=== PATIENT | female | born 1985 | race Caucasian/White ===

== ENCOUNTER 2017-06-02 10:09 | Observation (INO) | payer OTHER ==
[~2017-06-02 10:09] MED LIST: DICY1TAB26 PO; ZOFR4TAB3 SL
[2017-06-02 10:15] VITALS: BP 121/71; PULSE 102; RESP 18; TEMP 98.6; O2SAT 100
[2017-06-02] MEDS ORDERED: MULT-207 PO (10:46)
[2017-06-02] MEDS ORDERED: SYSTSOL EACH EYE (10:46)
--- NOTE | 2017-06-02 11:44 | PD ---
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 Patient states she noticed this about 4 days ago and attributed to fatigue. She reports that her vision is completely blurred in her peripheral vision of that left eye with some facial numbness and tingling surrounding the eye. She did follow-up with an network infrastructure architect yesterday who assured her that her I was not the source of her symptoms. She felt she would give it another day but with persistent visual changes in her left periphery, she felt she should come and get it evaluated. Patient denies any significant headache. There is no pain. She has not been recently ill. No fever or chills. No chest pain or tightness. Patient denies any other focal deficit or weakness. She has no other symptoms to report. PFSH Past Medical History Medical History: Denies Significant Hx Diminished Hearing: No ?: Not : 2 Para: 2 Miscarriage: 0 : 0 Past Surgical History Cholecystectomy: Yes Social History Alcohol Use: No Tobacco Use: No Substance Use: No Allergies-Medications (Allergen,Severity, Reaction): Coded Allergies: No Known Allergies (Verified , 11/25/15) Reported Meds & Prescriptions Reported Meds & Active Scripts Active Reported One Daily (Multiple Vitamin) 1 Tab 1 Tab PO DAILY Systane Opth Drops (Polyethylene Glycol-Propylene Glycol Opth Drp) 0.4-0.3% Soln 1-2 Drop EACH EYE PRN PRN Review of Systems Except as stated in HPI: all other systems reviewed are Neg Physical Exam Narrative GENERAL: Well-nourished female patient, ambulatory with a steady gait, in no acute distress. SKIN: Focused skin assessment warm/dry. HEAD: Atraumatic. Normocephalic. No ropey temporal artery. EYES: Pupils equal and round. No scleral icterus. No injection or drainage. EOMI. PERRLA. On confrontation test subjective blurred vision in the lateral and medial peripheral day of the left eye, worse on the lateral. ENT: No nasal bleeding or discharge. Mucous membranes pink and moist. NECK: Trachea midline. No JVD. CARDIOVASCULAR: Regular rate and rhythm. No murmur appreciated. RESPIRATORY: No accessory muscle use. Clear to auscultation. Breath sounds equal bilaterally. GASTROINTESTINAL: Abdomen soft, non-tender, nondistended. Hepatic and splenic margins not palpable. MUSCULOSKELETAL: No obvious deformities. No clubbing. No cyanosis. No edema. Equal surgical scheduler strength. NEUROLOGICAL: Awake and alert. Other than subjective sensation alteration in the left face, mostly surrounding the eye, cranial nerves are intact. Motor movement. Motor grossly within normal limits. Normal speech. PSYCHIATRIC: Appropriate mood and affect; insight and judgment normal. Data Data Last Documented VS Vital Signs Date Time Temp Pulse Resp B/P (MAP) Pulse Ox O2 Delivery O2 Flow Rate FiO2 06/02/17 12:13 99 06/02/17 10:15 98.6 102 18 Orders Orders Methylprednisolone So Succ Inj (Solumedr (06/02/17 12:06) Electrocardiogram (06/02/17 12:10) Basic Metabolic Panel (Bmp) (06/02/17 12:10) Ed Urine Pregnancytest Poc (06/02/17 12:10) Complete Blood Count With Diff (06/02/17 12:10) Urinalysis - C+S If Indicated (06/02/17 12:10) Ct Brain W/O Iv Contrast(Rout) (06/02/17 12:10) Ecg Monitoring (06/02/17 12:10) Iv Access Insert/Monitor (06/02/17 12:10) Oximetry (06/02/17 12:10) Sodium Chloride 0.9% Flush (Ns Flush) (06/02/17 12:15) Sodium Chlor 0.9% 1000 Ml Inj (Ns 1000 M (06/02/17 12:10) Act Partial Throm Time (Ptt) (06/02/17 11:32) Prothrombin Time / Inr (Pt) (06/02/17 11:32) Urine Culture (06/02/17 12:45) Ceftriaxone Inj (Rocephin Inj) (06/02/17 13:45) Labs Laboratory Tests Test 06/02/17 11:32 06/02/17 12:45 White Blood Count 6.5 TH/MM3 Red Blood Count 4.43 MIL/MM3 Hemoglobin 13.7 GM/DL Hematocrit 41.0 % Mean Corpuscular Volume 92.5 FL Mean Corpuscular Hemoglobin 31.1 PG Mean Corpuscular Hemoglobin Concent 33.6 % Red Cell Distribution Width 12.9 % Platelet Count 192 TH/MM3 Mean Platelet Volume 8.4 FL Neutrophils (%) (Auto) 65.1 % Lymphocytes (%) (Auto) 26.9 % Monocytes (%) (Auto) 6.4 % Eosinophils (%) (Auto) 1.2 % Basophils (%) (Auto) 0.4 % Neutrophils # (Auto) 4.2 TH/MM3 Lymphocytes # (Auto) 1.7 TH/MM3 Monocytes # (Auto) 0.4 TH/MM3 Eosinophils # (Auto) 0.1 TH/MM3 Basophils # (Auto) 0.0 TH/MM3 CBC Comment DIFF FINAL Differential Comment Prothrombin Time 11.2 SEC Prothromb Time International Ratio 1.0 RATIO Activated Partial Thromboplast Time 29.6 SEC Blood Urea Nitrogen 8 MG/DL Creatinine 0.79 MG/DL Random Glucose 81 MG/DL Calcium Level 8.9 MG/DL Sodium Level 139 MEQ/L Potassium Level 3.6 MEQ/L Chloride Level 105 MEQ/L Carbon Dioxide Level 25.5 MEQ/L Anion Gap 9 MEQ/L Estimat Glomerular Filtration Rate 84 ML/MIN Urine Color LIGHT-YELLOW Urine Turbidity HAZY Urine pH 5.5 Urine Specific [place] 1.006 Urine Protein NEG mg/dL Urine Glucose (UA) NEG mg/dL Urine Ketones 40 mg/dL Urine Occult Blood SMALL Urine Nitrite NEG Urine Bilirubin NEG Urine Urobilinogen LESS THAN 2.0 MG/DL Urine Leukocyte Esterase LARGE Urine RBC 4 /hpf Urine WBC 68 /hpf Urine Squamous Epithelial Cells 2 /hpf Urine Bacteria FEW /hpf Microscopic Urinalysis Comment CULTURE INDICATED MDM Medical Decision Making Medical Screen Exam Complete: Yes Emergency Medical Condition: Yes Medical Record Reviewed: Yes Differential Diagnosis Ocular migraine versus temporal arteritis versus trigeminal neuralgia versus TIA versus demyelinating process. Narrative Course 32-year-old female presents to emergency department for evaluation of peripheral visual "blurriness"with associated facial paresthesias. Patient appears without distress. She has no other focal deficits or weakness. Laboratory Tests Test 06/02/17 11:32 06/02/17 12:45 White Blood Count 6.5 TH/MM3 Red Blood Count 4.43 MIL/MM3 Hemoglobin 13.7 GM/DL Hematocrit 41.0 % Mean Corpuscular Volume 92.5 FL Mean Corpuscular Hemoglobin 31.1 PG Mean Corpuscular Hemoglobin Concent 33.6 % Red Cell Distribution Width 12.9 % Platelet Count 192 TH/MM3 Mean Platelet Volume 8.4 FL Neutrophils (%) (Auto) 65.1 % Lymphocytes (%) (Auto) 26.9 % Monocytes (%) (Auto) 6.4 % Eosinophils (%) (Auto) 1.2 % Basophils (%) (Auto) 0.4 % Neutrophils # (Auto) 4.2 TH/MM3 Lymphocytes # (Auto) 1.7 TH/MM3 Monocytes # (Auto) 0.4 TH/MM3 Eosinophils # (Auto) 0.1 TH/MM3 Basophils # (Auto) 0.0 TH/MM3 CBC Comment DIFF FINAL Differential Comment Prothrombin Time 11.2 SEC Prothromb Time International Ratio 1.0 RATIO Activated Partial Thromboplast Time 29.6 SEC Blood Urea Nitrogen 8 MG/DL Creatinine 0.79 MG/DL Random Glucose 81 MG/DL Calcium Level 8.9 MG/DL Sodium Level 139 MEQ/L Potassium Level 3.6 MEQ/L Chloride Level 105 MEQ/L Carbon Dioxide Level 25.5 MEQ/L Anion Gap 9 MEQ/L Estimat Glomerular Filtration Rate 84 ML/MIN Urine Color LIGHT-YELLOW Urine Turbidity HAZY Urine pH 5.5 Urine Specific [place] 1.006 Urine Protein NEG mg/dL Urine Glucose (UA) NEG mg/dL Urine Ketones 40 mg/dL Urine Occult Blood SMALL Urine Nitrite NEG Urine Bilirubin NEG Urine Urobilinogen LESS THAN 2.0 MG/DL Urine Leukocyte Esterase LARGE Urine RBC 4 /hpf Urine WBC 68 /hpf Urine Squamous Epithelial Cells 2 /hpf Urine Bacteria FEW /hpf Microscopic Urinalysis Comment CULTURE INDICATED Last Impressions Head CT 06/02/17 1210 Signed Impressions: Service Date/Time: May 13:01 - CONCLUSION: 1. No acute intracranial normality. Rex Centeno MD Patient will be treated for UTI. I discussed the patient with my attending physician Dr. Maldonado who does recommend admission for observation for further evaluation of this. Have discussed this with the patient and she is in agreement with this plan of care. I have discussed the patient now with Dr. Germain and he will admit the patient observation. Diagnosis Primary Impression: Abnormal peripheral vision of left eye Additional Impressions: Facial paresthesia UTI (urinary tract infection) Qualified Codes: N30.01 - Acute cystitis with hematuria Admitting Information Admitting Physician Requests: Observation Condition: Stable Gema Coley Jun 02, 2017 11:44
[2017-06-02] MEDS ORDERED: methylPREDNISolone SOD SUCC 125 MG/2 ML VIAL ONE (12:06)
[2017-06-02] MEDS ORDERED: SODIUM CHLOR 0.9% 1000 ML INJ 1,000 ML IV ONE ×2 (12:10→14:00)
[2017-06-02 12:13] VITALS: O2SAT 99
[2017-06-02] MEDS ORDERED: SODIUM CHLORIDE 0.9% FLUSH 10 ML FLUSH IVF PRN (12:15)
[2017-06-02 12:50] LABS: BICARBONATE 25.5 MEQ/L (21.0-32.0); POTASSIUM 3.6 MEQ/L (3.5-5.1)
[2017-06-02 12:56] LABS: APTT (PATIENT) 29.6 SEC (24.3-30.1); AUTOMATED NEUTROPHIL # 4.2 TH/MM3 (1.8-7.7); BASOPHIL % 0.4 % (0.0-2.0); EOSINOPHIL # 0.1 TH/MM3 (0-0.4); EOSINOPHIL % 1.2 % (0.0-4.0); HEMO FLAGS DIFF FINAL; LYMPH % 26.9 % (9.0-44.0); LYMPHOCYTE # 1.7 TH/MM3 (1.0-4.8); MEAN CELL VOLUME 92.5 FL (80.0-100.0); MEAN CORPUSCULAR HEMOGLOBIN 31.1 PG (27.0-34.0); MEAN CORPUSCULAR HGB CONC 33.6 % (32.0-36.0); MONO % 6.4 % (0.0-8.0); NEUT % 65.1 % (16.0-70.0); PLATELET COUNT 192 TH/MM3 (150-450); PROTHROMBIN TIME - PATIENT 11.2 SEC (9.8-11.6); RED BLOOD COUNT 4.43 MIL/MM3 (4.00-5.30); RED CELL DISTRIBUTION WIDTH 12.9 % (11.6-17.2); WHITE BLOOD COUNT 6.5 TH/MM3 (4.0-11.0)
[2017-06-02 13:22] LABS: BACTERIA, URINE FEW /hpf; BLOOD, URINE SMALL (NEG); GLUCOSE,URINE NEG (NEG); KETONE, URINE 40 mg/dL (NEG); NITRITE,URINE NEG (NEG); PH, URINE 5.5 (5.0-8.5); SQUAMOUS EPITHELIAL CELL URINE 2 /hpf (0-5); URINE COLOR LIGHT-YELLOW (YELLW/STRAW)
[2017-06-02 13:26] LABS: COMMENT (UR) CULTURE INDICATED; CULTURE IF INDICATED CULTURE INDICATED
--- NOTE | 2017-06-02 13:35 | RADRPT ---
EXAM DATE/TIME: 06/02/2017 13:01 [facility] COMPARISON: No previous studies available for comparison. INDICATIONS : Peripheral vision loss on left side. RADIATION DOSE: 56.77 CTDIvol (mGy) MEDICAL HISTORY : None SURGICAL HISTORY : Cholecystectomy. ENCOUNTER: Initial ACUITY: 4 - 6 days PAIN SCALE: 3/10 LOCATION: Left lateral side. TECHNIQUE: Multiple contiguous axial images were obtained of the head. Using automated exposure control and adj ustment of the mA and/or kV according to patient size, radiation dose was kept as low as reasonably a chievable to obtain optimal diagnostic quality images. DICOM format image data is available electro nically for review and comparison. FINDINGS: CEREBRUM: The ventricles are normal for age. No evidence of midline shift, mass lesion, hemorrhage or acute in farction. No extra-axial fluid collections are seen. POSTERIOR FOSSA: The cerebellum and brainstem are intact. The 4th ventricle is midline. The cerebellopontine angle i s unremarkable. EXTRACRANIAL: The visualized portion of the orbits is intact. SKULL: The calvaria is intact. No evidence of skull fracture. CONCLUSION: 1. No acute intracranial normality. Rex Centeno MD on June 02, 2017 at 13:31 Board Certified Radiologist. This report was verified electronically.
[2017-06-02] MEDS ORDERED: cefTRIAXone INJ 1,000 MG in SODIUM CHLORIDE 0.9% INJ 100 ML IV ONE (13:45)
[2017-06-02] MEDS ORDERED: methylPREDNISolone SOD SUCC 125 MG/2 ML VIAL IV ONE (14:00)
--- NOTE | 2017-06-02 14:45 | HHI.HP ---
HPI Service [facility] Hospitalists Primary Care Physician Teresa Johnson D.O. 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 Patient states she noticed the symptoms began around 4 days ago but initially attributed this to fatigue. She reports that her vision is completely blurred in her peripheral vision on that left eye with some facial numbness and tingling surrounding the left eye and left cheek. Around two days ago she developed some left sided headache which was relieved with Motrin. She was seen by her poultry farm worker yesterday who performed a dilated examination and she reports that the eye was not the source of her symptoms. Pt reported that the visual changes in her left periphery was persistent and this prompted her to come to the ED for further evaluation. She did try some sinus medication yesterday which the poultry farm worker recommended but she did not notice any difference in her symptoms. She denies any significant headache, facial droop, speech difficulty, swallowing difficulty, focal deficit or weakness. Pt reports that she has not been ill recently. No new medications. No family hx of any neurodegenerative or autoimmune diseases. Review of Systems Eyes: COMPLAINS OF: Blurred vision, DENIES: Eye pain, Vision loss, Photosensitivity, Double Vision Ears, nose, mouth, throat: DENIES: Tinnitus, Hearing loss, Nasal discharge, Hoarseness, Ear Pain, Running Nose, Sinus Pain Respiratory: DENIES: Cough, Shortness of breath Cardiovascular: DENIES: Chest pain, Palpitations Gastrointestinal: DENIES: Abdominal pain, Nausea, Vomiting Genitourinary: DENIES: Urinary frequency, Urgency, Hematuria, Dysuria Musculoskeletal: DENIES: Back pain, Neck pain Integumentary: DENIES: Rash Immunologic/allergic: DENIES: Urticaria Neurologic: COMPLAINS OF: Headache, Paresthesias, DENIES: Localized weakness, Speech Problems, Poor Balance Past Family Social History Past Medical History Legally blind in the right eye Past Surgical History Cholecystectomy Hemorrhoidal banding Perianal cyst removal Reported Medications One Daily (Multiple Vitamin) 1 Tab 1 Tab PO DAILY Systane Opth Drops (Polyethylene Glycol-Propylene Glycol Opth Drp) 0.4-0.3% Soln 1-2 Drop EACH EYE PRN PRN Allergies: Coded Allergies: No Known Allergies (Verified , 11/25/15) Family History Grandfather with hx of lupus otherwise no family hx of autoimmune or neurodegenerative diseases noted Social History Denies any alcohol, tobacco or illicit drug use Pt is an RN here at [facility] Physical Exam Vital Signs Vital Signs Date Time Temp Pulse Resp B/P (MAP) Pulse Ox O2 Delivery O2 Flow Rate FiO2 06/02/17 12:13 99 06/02/17 10:15 98.6 102 18 121/71 (88) 100 Physical Exam GENERAL: This is a well-nourished, well-developed patient, in no apparent distress. SKIN: No rashes, ecchymoses or lesions. Cool and dry. HEAD: Atraumatic. Normocephalic. No temporal or scalp tenderness. EYES: PERRLA. Extraocular motions intact. No scleral icterus. No injection or drainage. Good temporal pulses bilaterally. Subjective blurred vision in the lateral and medial peripheral visual ady of the left eye, worse on the lateral. ENT: Nose without bleeding, purulent drainage or septal hematoma. Throat without erythema, tonsillar hypertrophy or exudate. Uvula midline. Airway patent. NECK: Trachea midline, supple, nontender. No carotid bruits noted. CARDIO: Regular RESP: CTA bilaterally. No wheezes, rales, or rhonchi. ABD: +BS, soft, non-tender, nondistended. EXT: Extremities without clubbing, cyanosis, or edema. NEURO: Awake and alert. Subjective numbness sensation around the left eye and cheek. Motor and sensory grossly within normal limits. Five out of 5 muscle strength in all muscle groups. Normal speech. Laboratory Laboratory Tests Test 06/02/17 11:32 06/02/17 12:45 White Blood Count 6.5 Red Blood Count 4.43 Hemoglobin 13.7 Hematocrit 41.0 Mean Corpuscular Volume 92.5 Mean Corpuscular Hemoglobin 31.1 Mean Corpuscular Hemoglobin Concent 33.6 Red Cell Distribution Width 12.9 Platelet Count 192 Mean Platelet Volume 8.4 Neutrophils (%) (Auto) 65.1 Lymphocytes (%) (Auto) 26.9 Monocytes (%) (Auto) 6.4 Eosinophils (%) (Auto) 1.2 Basophils (%) (Auto) 0.4 Neutrophils # (Auto) 4.2 Lymphocytes # (Auto) 1.7 Monocytes # (Auto) 0.4 Eosinophils # (Auto) 0.1 Basophils # (Auto) 0.0 CBC Comment DIFF FINAL Differential Comment Prothrombin Time 11.2 Prothromb Time International Ratio 1.0 Activated Partial Thromboplast Time 29.6 Blood Urea Nitrogen 8 Creatinine 0.79 Random Glucose 81 Calcium Level 8.9 Sodium Level 139 Potassium Level 3.6 Chloride Level 105 Carbon Dioxide Level 25.5 Anion Gap 9 Estimat Glomerular Filtration Rate 84 Urine Color LIGHT-YELLOW Urine Turbidity HAZY Urine pH 5.5 Urine Specific [place] 1.006 Urine Protein NEG Urine Glucose (UA) NEG Urine Ketones 40 Urine Occult Blood SMALL Urine Nitrite NEG Urine Bilirubin NEG Urine Urobilinogen LESS THAN 2.0 Urine Leukocyte Esterase LARGE Urine RBC 4 Urine WBC 68 Urine Squamous Epithelial Cells 2 Urine Bacteria FEW Microscopic Urinalysis Comment CULTURE INDICATED Date/Time Source Procedure Growth Status 06/02/17 12:45 Urine Clean Catch Urine Culture Pending Received Result Diagram: 06/02/17 1132 06/02/17 1132 Imaging Last Impressions Head CT 06/02/17 1210 Signed Impressions: Service Date/Time: May 13:01 - CONCLUSION: 1. No acute intracranial normality. Rex Centeno MD Septic Shock Reassessment Heart: Regular rate and rhythm Lungs: Clear Skin: Warm Caprini VTE Risk Assessment Caprini VTE Risk Assessment: No/Low Risk (score <= 1) Caprini Risk Assessment Model Point Value = 1 Point Value = 2 Point Value = 3 Point Value = 5 Age 41-60 Minor surgery BMI > 25 kg/m2 Swollen legs Varicose veins or History of unexplained or recurrent spontaneous Oral contraceptives or hormone replacement Sepsis (< 1 month) Serious lung disease, including pneumonia (< 1 month) Abnormal pulmonary function Acute myocardial infarction Congestive heart failure (< 1 month) History of inflammatory bowel disease Medical patient at bed rest Age 61-74 Arthroscopic surgery Major open surgery (> 45 min) Laparoscopic surgery (> 45 min) Malignancy Confined to bed (> 72 hours) Immobilizing plaster cast Central venous access Age >= 75 History of VTE Family history of VTE Factor V Leiden Prothrombin [id number] Lupus anticoagulant Anticardiolipin antibodies Elevated serum homocysteine Heparin-induced thrombocytopenia Other congenital or acquired thrombophilia Stroke (< 1 month) Elective arthroplasty Hip, pelvis, or leg fracture Acute spinal cord injury (< 1 month) Prophylaxis Regimen Total Risk Factor Score Risk Level Prophylaxis Regimen 0-1 Low Early ambulation 2 Moderate Order ONE of the following: *Sequential Compression Device (SCD) *Heparin 5000 units SQ BID 3-4 Higher Order ONE of the following medications: *Heparin 5000 units SQ TID *Enoxaparin/Lovenox 40 mg SQ daily (WT < 150 kg, CrCl > 30 mL/min) *Enoxaparin/Lovenox 30 mg SQ daily (WT < 150 kg, CrCl > 10-29 mL/min) *Enoxaparin/Lovenox 30 mg SQ BID (WT < 150 kg, CrCl > 30 mL/min) AND/OR *Sequential Compression Device (SCD) 5 or more Highest Order ONE of the following medications: *Heparin 5000 units SQ TID (Preferred with Epidurals) *Enoxaparin/Lovenox 40 mg SQ daily (WT < 150 kg, CrCl > 30 mL/min) *Enoxaparin/Lovenox 30 mg SQ daily (WT < 150 kg, CrCl > 10-29 mL/min) *Enoxaparin/Lovenox 30 mg SQ BID (WT < 150 kg, CrCl > 30 mL/min) AND *Sequential Compression Device (SCD) Assessment and Plan Problem List: (1) Abnormal peripheral vision of left eye ICD Codes: H53.452 - Other localized visual field defect, left eye Status: Acute Plan: - Pt is a 32 y/o female with 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 She reports that her vision is completely blurred in her peripheral vision on that left eye with some facial numbness and tingling surrounding the left eye and left cheek. She did have some left sided headache which was relieved with Motrin. - Pt was seen by her poultry farm worker yesterday who performed a dilated examination and she reports that the eye was not the source of her symptoms. - Head CT in the ED was negative. - Etiology for the patients symptoms are unclear, need to rule out stroke vs. demyelinating condition vs. less likely vasculitis - Pt was given a dose of Solu-Medrol in the ED - MRI brain - MRA of the neck and brain - Check ESR and CRP - monitor technician - Consult Neurology - Neuro checks - Supportive care - DVT prophylaxis with SCDs (2) Facial paresthesia ICD Codes: R20.9 - Unspecified disturbances of skin sensation Status: Acute Plan: - See above (3) UTI (urinary tract infection) ICD Codes: N39.0 - Urinary tract infection, site not specified Status: Acute Plan: - Pt with an abnormal UA but she denies any urinary symptoms - Pt was given a dose of Rocephin in [facility] ED - Await urine culture results Assessment and Plan Patient examined. Assessment and plan formulated with Nalini Kern PA-C. I agree with the above. left peripheral vision blurred. left scalp/facial pain. had dilated eye exam by her eye doctor before arrival here. r/o cva/demyelinating process and doubt vasculitis. mri/a, tele, esr, neuro consult. solumedrol given by ED x 1 pt has blindness from in right eye. if above negative will refer her to our [facility] ophthalmology doctors. Problem Qualifiers (1) UTI (urinary tract infection): Qualified Codes: N30.01 - Acute cystitis with hematuria Nalini Kern Jun 02, 2017 14:45 Arthur Camejo MD Jun 02, 2017 16:10
[2017-06-02] MEDS ORDERED: ONDANSETRON HCL 4 MG/2 ML VIAL IV PRN (15:00)
[2017-06-02] MEDS ORDERED: ACETAMINOPHEN 325 MG TAB PO PRN (15:00)
[2017-06-02 15:56] VITALS: BP 109/60; PULSE 97; RESP 20; TEMP 98.4; O2SAT 99
[2017-06-02 16:32] LABS: BETA HCG QUANT LESS THAN 1 MIU/ML (0-5)
[2017-06-02] MEDS ORDERED: GADODIAMIDE PF 287 MG/ML 20 ML VIAL (for RAD MRI) IVCONTRAST ONE (16:47)
--- NOTE | 2017-06-02 17:05 | RADRPT ---
EXAM DATE/TIME: 06/02/2017 16:23 [facility] COMPARISON: CT BRAIN W/O CONTRAST, June 02, 2017, 13:01. INDICATIONS : Vision changes in left eye. CONTRAST: 20 cc Omniscan (gadodiamide) IV MEDICAL HISTORY : None. SURGICAL HISTORY : Cholecystectomy. ENCOUNTER: Subsequent ACUITY: 4-6 days PAIN SCORE: 0/10 LOCATION: head. TECHNIQUE: Multiplanar, multisequence MRI of the brain was performed both prior to and following the administrat ion of paramagnetic contrast. FINDINGS: There is no evidence for intracranial hemorrhage, mass effect, mass lesions, edema, or extra-axial fl uid collections. The ventricles are normal size for the patient's age. There are no signs of acute infarction for technique. The diffusion portion, and postcontrast portion are unremarkable. CONCLUSION: Unremarkable study. Lorraine Hills MD on June 02, 2017 at 16:59 Board Certified Radiologist. This report was verified electronically.
--- NOTE | 2017-06-02 17:06 | RADRPT ---
EXAM DATE/TIME: 06/02/2017 16:23 [facility] COMPARISON: MRI BRAIN W & W/O CONTRAST, June 02, 2017, 16:23. CT BRAIN W/O CONTRAST, June 02, 2017, 13:01. INDICATIONS : Vision changes in left eye. MEDICAL HISTORY : None. SURGICAL HISTORY : Cholecystectomy. ENCOUNTER: Subsequent ACUITY: 4-6 days PAIN SCORE: 0/10 LOCATION: head. Please note a normal MRA of the brain does not entirely exclude the possibility of a small aneurysm, nor the possibility of distal intracranial vessel disease. TECHNIQUE: 3D time of flight MRA was performed. Source images, multiplanar STS MIP, and 3D volume MIP reconstru ctions were reviewed. FINDINGS: There is excellent visualization of the major intracranial arteries out to the second-order branch ve ssels. There is no evidence for aneurysm, vessel truncation or stenosis, and no evidence for vascula r malformation. CONCLUSION: Normal examination. Lorraine Hills MD on June 02, 2017 at 17:03 Board Certified Radiologist. This report was verified electronically.
--- NOTE | 2017-06-02 17:23 | RADRPT ---
EXAM DATE/TIME: 06/02/2017 16:23 [facility] COMPARISON: MRA BRAIN W/O CONTRAST, June 02, 2017, 16:23. MRI BRAIN W & W/O CONTRAST, June 02, 2017, 16:23. CT BRAIN W/O CONTRAST, June 02, 2017, 13:01. INDICATIONS : Stenosis. CONTRAST: 20 cc Omniscan (gadodiamide) IV MEDICAL HISTORY : None. SURGICAL HISTORY : Cholecystectomy. ENCOUNTER: Subsequent ACUITY: 4-6 days PAIN SCORE: 0/10 LOCATION: head. Percent stenosis is calculated using the diameter of the stenotic region over the diameter of the nor mal distal internal carotid artery. TECHNIQUE: Bolus infused MRA of the extracranial circulation was performed using a neurovascular coil. Post pro cessing was performed including rotating subvolume maximum intensity projections of each carotid lelo ry, rotating full volume maximum intensity projections of both carotid arteries, sagittal and coronal sliding thin slab reformations of each carotid artery, and left oblique sliding thin slab reformatio n through the aortic arch to include the origin of the arch branch vessels. FINDINGS: AORTIC ARCH: There is a three vessel origin of the great vessels from the aorta. No evidence of ostial narrowing. RIGHT CAROTID: The common carotid artery is intact. The carotid bulb has a normal configuration without ulceration or narrowing. The internal carotid artery lumen is smooth without stenosis. The external carotid ar maricarmen is intact. LEFT CAROTID: The common carotid artery is intact. The carotid bulb has a normal configuration without ulceration or narrowing. The internal carotid artery lumen is smooth without stenosis. The external carotid ar maricarmen is intact. VERTEBRALS: The vertebral arteries have a symmetric diameter. No stenotic lesions are seen. CONCLUSION: Normal examination. Lorraine Hills MD on June 02, 2017 at 17:21 Board Certified Radiologist. This report was verified electronically.
[2017-06-02 20:07] VITALS: BP 114/66; PULSE 82; RESP 18; TEMP 97.9; O2SAT 98
[2017-06-02 22:48] VITALS: BP 114/71; PULSE 101; RESP 18; TEMP 98; O2SAT 99
[2017-06-02] MEDS ORDERED: ASPIRIN 325 MG TAB PO ONE (23:00)
[2017-06-02] MEDS ORDERED: ALPRAZolam 0.25 MG TAB PO ONE (23:00)
[2017-06-03 03:19] VITALS: BP 114/70; PULSE 98; RESP 18; TEMP 98.2; O2SAT 99
[2017-06-03 07:20] VITALS: BP 104/63; PULSE 86; RESP 16; TEMP 98.7; O2SAT 99
--- NOTE | 2017-06-03 08:26 | HHI.PR ---
Subjective Remarks Pt very upset this morning. She spoke with neurology and at this point there is concern for optic neuritis She reports that last night she had some tingling in bilateral UE from the elbows to the finger tips and also in bilateral LE from the knees up to the hips Pt was given Xanax and an ASA. No complaints of any numbness or tingling this morning. Vision is unchanged. Still with peripheral blurriness on the left. Objective Vitals Vital Signs Date Time Temp Pulse Resp B/P (MAP) Pulse Ox O2 Delivery O2 Flow Rate FiO2 06/03/17 07:20 98.7 86 16 104/63 (77) 99 06/03/17 03:19 98.2 98 18 114/70 (85) 99 06/02/17 22:48 98.0 101 18 114/71 (85) 99 06/02/17 20:07 97.9 82 18 114/66 (82) 98 06/02/17 19:24 18 06/02/17 15:56 98.4 97 20 109/60 (76) 99 06/02/17 12:13 99 06/02/17 10:15 98.6 102 18 121/71 (88) 100 Result Diagram: 06/02/17 1132 06/02/17 1132 Other Results Laboratory Tests Test 06/02/17 11:32 06/02/17 12:45 White Blood Count 6.5 TH/MM3 Red Blood Count 4.43 MIL/MM3 Hemoglobin 13.7 GM/DL Hematocrit 41.0 % Mean Corpuscular Volume 92.5 FL Mean Corpuscular Hemoglobin 31.1 PG Mean Corpuscular Hemoglobin Concent 33.6 % Red Cell Distribution Width 12.9 % Platelet Count 192 TH/MM3 Mean Platelet Volume 8.4 FL Neutrophils (%) (Auto) 65.1 % Lymphocytes (%) (Auto) 26.9 % Monocytes (%) (Auto) 6.4 % Eosinophils (%) (Auto) 1.2 % Basophils (%) (Auto) 0.4 % Neutrophils # (Auto) 4.2 TH/MM3 Lymphocytes # (Auto) 1.7 TH/MM3 Monocytes # (Auto) 0.4 TH/MM3 Eosinophils # (Auto) 0.1 TH/MM3 Basophils # (Auto) 0.0 TH/MM3 CBC Comment DIFF FINAL Differential Comment Erythrocyte Sedimentation Rate 18 mm/hr Prothrombin Time 11.2 SEC Prothromb Time International Ratio 1.0 RATIO Activated Partial Thromboplast Time 29.6 SEC Blood Urea Nitrogen 8 MG/DL Creatinine 0.79 MG/DL Random Glucose 81 MG/DL Calcium Level 8.9 MG/DL Sodium Level 139 MEQ/L Potassium Level 3.6 MEQ/L Chloride Level 105 MEQ/L Carbon Dioxide Level 25.5 MEQ/L Anion Gap 9 MEQ/L Estimat Glomerular Filtration Rate 84 ML/MIN C-Reactive Protein LESS THAN 0.29 MG/DL Human Chorionic Gonadotropin, Quant LESS THAN 1 MIU/ML Urine Color LIGHT-YELLOW Urine Turbidity HAZY Urine pH 5.5 Urine Specific [place] 1.006 Urine Protein NEG mg/dL Urine Glucose (UA) NEG mg/dL Urine Ketones 40 mg/dL Urine Occult Blood SMALL Urine Nitrite NEG Urine Bilirubin NEG Urine Urobilinogen LESS THAN 2.0 MG/DL Urine Leukocyte Esterase LARGE Urine RBC 4 /hpf Urine WBC 68 /hpf Urine Squamous Epithelial Cells 2 /hpf Urine Bacteria FEW /hpf Microscopic Urinalysis Comment CULTURE INDICATED Imaging Last Impressions Head CT 06/02/17 1210 Signed Impressions: Service Date/Time: May 13:01 - CONCLUSION: 1. No acute intracranial normality. Rex Centeno MD Neck Magnetic Resonance Angiography 06/02/17 0000 Signed Impressions: Service Date/Time: May 16:23 - CONCLUSION: Normal examination. Lorraine Hills MD Head Magnetic Resonance Angiography 06/02/17 0000 Signed Impressions: Service Date/Time: May 16:23 - CONCLUSION: Normal examination. Lorraine Hills MD Brain MRI 06/02/17 0000 Signed Impressions: Service Date/Time: May 16:23 - CONCLUSION: Unremarkable study. 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 She reports that her vision is completely blurred in her peripheral vision on that left eye with some facial numbness and tingling surrounding the left eye and left cheek. She did have some left sided headache which was relieved with Motrin. - Pt was seen by her cigarette tipper yesterday who performed a dilated examination and she reports that the eye was not the source of her symptoms. - Head CT in the ED was negative. - Etiology for the patients symptoms are unclear, need to rule out stroke vs. demyelinating condition vs. 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 Osborn for ?optic neuritis. - Spoke with Dr. Osborn and he would like the patient seen in his office today for a detailed examination as he is unable to do this at the bedside without his proper equipment. - Spoke with Dr. Brown and he has cleared the patient for discharge to be seen by Dr. Osborn today. Dr. Brown does want to speak with Dr. Osborn after the patients examination is performed to decide if the patient needs to be readmitted for IV Solu-medrol or if outpt arrangements can be made. I spoke with the nurse at Dr. Osborn's office, Gissell, and gave her Dr. Brown's cell phone number to give to Dr. Osborn. - Pt will be discharged today to be seen by Dr. Osborn at 12:30pm. (2) Facial paresthesia ICD Codes: R20.9 - Unspecified disturbances of skin sensation Status: Acute Plan: - See above (3) UTI (urinary tract infection) ICD Codes: N39.0 - Urinary tract infection, site not specified Status: Acute Plan: - Pt with an abnormal UA but she denies any urinary symptoms - Pt was given a dose of Rocephin in the ED - Await urine culture results Assessment and Plan Patient examined. Assessment and plan formulated with Nalini Kern PA-C. I agree with the above. spoke with Dr Brown. He thinks she might have optic neuritis and needs an opthalmology eval. mri/a brain and carotids and sed rate unremarkable. Dr Brown felt she was neurologically stable to be sent over for eye exam and so Dr Osborn will look at her today. If she does have it and need high dose steroids we can readmit her today or Dr Brown says he can arrange for it outpatient also. Problem Qualifiers (1) UTI (urinary tract infection): Qualified Codes: N30.01 - Acute cystitis with hematuria Nalini Kern Jun 03, 2017 08:26 Arthur Camejo MD Jun 03, 2017 11:23
[2017-06-03] MEDS ORDERED: methylPREDNISolone SOD SUCC 40 MG/1 ML VIAL IV SCH (09:00)
--- NOTE | 2017-06-03 09:55 | MB ---
cc: ESTEFANIA SALDIVAR M.D. DATE OF CONSULTATION 06/03/2017 REASON FOR CONSULTATION Visual disturbance HISTORY OF PRESENT ILLNESS Ms. 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 She has normal vision in the left eye except four days ago began to notice the fairly acute onset of severe visual blurring off to the left periphery of the left eye with eye pain, pain behind the eye, as well as numbness on the left side of her face. She also had numbness and tingling in the extremities. She had a headache as well. Her symptoms persisted in the eye, but the peripheral symptoms have resolved. PAST MEDICAL HISTORY 1. Congenital blindness in the right eye 2. Cholecystectomy 3. Hemorrhoidal banding surgery 4. Anal cyst removal MEDICATIONS 1. Multivitamins 2. Systane ophthalmic drops in each eye. ALLERGIES None known. NEUROLOGIC EXAMINATION VITAL SIGNS: Blood pressure is 104/63, pulse 86, respirations 16, temperature 98.7 degrees. Higher cortical functions normal. On cranial nerve exam, she has markedly diminished visual acuity in the right eye. The left eye she has an apparent visual field loss to gross confrontation in the periphery in the temporal area mainly superiorly. The inferior portion appears to relatively preserved in that she can count fingers. Medially she can count fingers. Pupils are 2 mm. They both react, but the left one appears to be somewhat sluggishly reactive. Extraocular movements are intact. Other cranial nerves normal. Motor exam is normal. MRI brain normal. CT brain is normal. Head MRA is normal. MRA of the neck is normal with no evidence of stenosis. LABORATORY DATA White count 6500, hemoglobin 13.7, hematocrit 41%, platelet count 192 thousand, sed rate 18. Sodium 139, potassium 3.6, chloride 105, CO2 25.5, BUN is 8, creatinine 0.79, GFR is 84, glucose 81, Beta hCG less than 1, C-reactive protein less than 0.29. PT 11.2, INR 1, APTT 29.6. Urinalysis pH is 5.5, specific gravity 1.006, negative glucose, negative protein, ketone of 40, WBC is 68. IMPRESSION Possible left optic neuritis/retrobulbar neuritis. RECOMMENDATIONS Recommend IV Solu-Medrol 1000 mg daily for three days for the possibly of optic neuritis. Also recommend ophthalmology consult. Check additional labs including B12 level, MUKUL and a Lyme PCR. MD ARCHANA Montano/JESSICA /8:40 AM /9:45 AM
[2017-06-03] MEDS ORDERED: methylPREDNISolone SO SUCC INJ 1,000 MG in DEXTROSE 5% IN WATER INJ 250 ML IV SCH ×2 (11:00)
--- NOTE | 2017-06-03 11:13 | EKG ---
Date Performed: 06/02/2017 Time Performed: 12:21:14 PTAGE: 32 years EKG: Sinus rhythm NORMAL ECG NO PREVIOUS TRACING DOCTOR: Darrius Kay Interpretating Date/Time 06/03/2017 11:12:27
== END 2017-06-03 10:57 | disposition home or self-care (01) ==
LOC: NEPC 10:09 → NEDA 13:50 → NEPHCDU 15:42
PROVIDERS: ADMIT Hospitalist; ATTEND Hospitalist
DX: H53.9 Unspecified visual disturbance (principal); R20.9 Unspecified disturbances of skin sensation; N39.0 Urinary tract infection, site not specified; H54.41 Blindness, right eye, normal vision left eye; R51 Headache
CPT/HCPCS: 70450; 70544; 70548; 70553; 80048; 81001; 84702; 84703; 85025; 85610; 85652; 85730; 86140; 87086; 93005; 96361; 96365; 96375; 99285; A9579; G0378; J0696; J7030; J2930